=== PATIENT | female | born 1985 | race Caucasian/White ===

== ENCOUNTER 2024-10-21 22:38 | Emergency (ER) | payer MEDICAID, OTHER ==
[~2024-10-21] VITALS: Ht 167.6 cm; Wt 57.5 kg
[2024-10-22 04:16] VITALS: TEMP 98.2
[2024-10-22] MEDS: ONDANSETRON 4MG 2ML VIAL IV ONE (06:43)
[2024-10-22] MEDS: NS (Normal Saline) 0.9% 1,000 ML IV ONE (06:43)
[2024-10-22 06:48] LABS: BASO # 0.1 10^3/uL (0.0-0.2); BASO % 0.9 % (0.0-1.0); EOS # 0.1 10^3/uL (0.0-0.5); EOS % 0.9 % (0.0-3.0); LYMPH # 1.4 10^3/uL (1.5-5.0); LYMPH % 24.5 % (24.0-44.0); MONO # 0.6 10^3/uL (0.0-0.8); MONO % 9.8 % (2.0-8.0); NEUTROPHILS # 3.6 10^3/uL (1.5-8.5); NEUTROPHILS % 63.7 % (36.0-66.0); PLATELET COUNT, AUTOMATED 297 10^3/uL (150-450)
[2024-10-22] MEDS: ACETAMINOPHEN *IV* 1,000 MG in IV 1 EA IV ONE (07:18)
[2024-10-22 07:32] LABS: ALT/SGPT 14 U/L (7.0-40); AST/SGOT 21 U/L (<34); CALCIUM LEVEL 9.2 MG/DL (8.5-10.1); CARBON DIOXIDE LEVEL 26 MMOL/L (20-31); CHLORIDE LEVEL 101 MMOL/L (98-107); CREATININE FOR GFR 0.71 MG/DL (0.55-1.30); GLOMERULAR FILTRATION RATE > 90.0 (>58); POTASSIUM SERUM 4.0 MMOL/L (3.5-5.1); SODIUM LEVEL 139 MMOL/L (136-145)
[2024-10-22 07:46] LABS: HCG, SERUM QUALITATIVE NEGATIVE (NEGATIVE)
[2024-10-22] MEDS: KETOROLAC 30 MG/ML 1 ML VIAL IV ONE (08:22)
[2024-10-22] MEDS ORDERED: REGL10TA6 PO (10:00)
[2024-10-22 10:23] VITALS: O2SAT 100
[2024-10-22 10:30] VITALS: BP 127/61
== END 2024-10-22 10:43 | disposition home or self-care (01) ==
LOC: M ED 22:38
DX: R11.10 Vomiting, unspecified (principal); R51.9 Headache, unspecified; B34.8 Other viral infections of unspecified site; F17.200 Nicotine dependence, unspecified, uncomplicated; G35 Multiple sclerosis; Z79.899 Other long term (current) drug therapy; Z21 Asymptomatic human immunodeficiency virus [HIV] infection status
CPT/HCPCS: 70450; 80048; 80076; 83605; 83690; 84703; 85025; 87486; 87581; 87633; 87798; 93041; 96365; 96366; 96375; 99285; J0131; J1885; J2405; J2765

== ENCOUNTER → 2025-02-11 | Outpatient (CLI) | payer OTHER ==
[~2025-02-11] MED LIST: REGL10TA6 PO
[2025-02-11 15:10] LABS: APPEARANCE, URINE HAZY (CLEAR); BACTERIA, URINE AUTO 1+ (NEGATIVE); BILIRUBIN, URINE AUTO NEGATIVE (NEGATIVE); BLOOD, URINE BLOOD NEGATIVE (NEGATIVE); CALCIUM OXALATE CRYSTALS SMALL; GLUCOSE, URINE (UA) AUTO NEGATIVE (NEGATIVE); KETONE, URINE AUTO NEGATIVE (NEGATIVE); LEUKOCYTE ESTERASE, URINE AUTO NEGATIVE (NEGATIVE); MUCUS, URINE SMALL (NEGATIVE); NITRITE, URINE AUTO POSITIVE (NEGATIVE); PROTEIN, URINE AUTO NEGATIVE (NEGATIVE); RBC, URINE AUTO 1 /HPF (0-3); SPECIFIC GRAVITY URINE AUTO 1.023 (1.002-1.035); SQUAMOUS EPITHELIAL CELL UR AU 2 /HPF (0-6); UROBILINOGEN, URINE AUTO 0.2 mg/dL (0.0-2.0); WBC, URINE AUTO 10 /HPF (0-3)
[2025-02-11 15:36] LABS: ALT/SGPT 16 U/L (7.0-40); AST/SGOT 17 U/L (<34); CALCIUM LEVEL 8.8 MG/DL (8.5-10.1); CARBON DIOXIDE LEVEL 30 MMOL/L (20-31); CHLORIDE LEVEL 107 MMOL/L (98-107); CREATININE FOR GFR 0.75 MG/DL (0.55-1.30); GLOMERULAR FILTRATION RATE > 90.0 (>58); POTASSIUM SERUM 4.3 MMOL/L (3.5-5.1); SODIUM LEVEL 144 MMOL/L (136-145)
[2025-02-11 18:34] LABS: GC DNA AMPLIFICATION NEGATIVE (NEGATIVE)
[2025-02-13 04:12] LABS: % CD4 55 % (30-61); %CD8 19 % (12-42); ABSOLUTE CD4 CELLS 1091 cells/uL (490-1740); ABSOLUTE CD8 CELLS 379 cells/uL (180-1170); ABSOLUTE LYMPHOCYTES 1982 cells/uL (850-3900); CD4 CD8 RATIO 2.88 (0.86-5.00)
[2025-02-13 05:51] LABS: HEPATITIS C VIRUS ABY INDEX 6.22 INDEX (<0.8)
[2025-02-13 19:30] LABS: HIV-1 RNA PCR QUANT 2 33 copies/mL (NOT DETECTED); HIV-1 RNA PCR QUANT 3 1.52 (NOT DETECTED)
[2025-02-15 10:36] LABS: HCV RNA QUANTITATION <15 NOT DETECTED IU/mL (NOT DETECTED); HCV RNA log10 <1.18 NOT DETECTED Log IU/mL (NOT DETECTED)
[2025-02-17 18:01] LABS: HEPATITIS A IgG TOTAL REACTIVE (NON-REACTIVE); HEPATITIS B CORE ANTIBODY IGG NON-REACTIVE (NON-REACTIVE); HEPATITIS B SURF AB QUANT < 5 mIU/mL (> OR = 10); HSV 1 IGG TYPE SPECIFIC 13.70 index (<0.90)
== END ==
LOC: M PLALAB 09:16
PROVIDERS: ATTEND Internal Medicine Infectious Disease
DX: Z11.3 Encounter for screening for infections with a predominantly sexual mode of transmission (principal); B20 Human immunodeficiency virus [HIV] disease